=== PATIENT | male | born 2000 | race Caucasian/White ===

== ENCOUNTER 2025-07-01 17:45 | Emergency (ER) | payer OTHER, SELFPAY ==
--- NOTE | ~2025-07-01 | CT_ITS ---
CT facial bones Clinical History: head injury Comparison: None Technique: Unenhanced images through face Coronal, sagittal reformats CT images acquired with automatic exposure control for dose reduction DLP: 375 mGy-cm Findings/impression: 1. Nondisplaced fracture midline mandible propagating back along right side. 2. Additional nondisplaced fracture posterior left mandible along molars. Associated soft tissue emphysema. Reviewed, dictated and finalized at location R.
--- NOTE | ~2025-07-01 | CT_ITS ---
CT HEAD NON-CONTRAST Clinical History: head injury Comparison: None Technique: Unenhanced axial images skull base to vertex Coronal, sagittal reformats CT images acquired with automatic exposure control for dose reduction DLP: 681 mGy-cm Findings: Sulci, ventricles: Unremarkable. No intracerebral hemorrhage. No evidence acute territorial infarct. No mass effect, midline shift. Bony calvarium intact. Visualized paranasal sinuses: Clear. Mastoid air cells: Clear. IMPRESSION: 1. No acute intracranial findings. Reviewed, dictated and finalized at location R.
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
[2025-07-01 18:20] VITALS: BP 132/92; PULSE 96; RESP 14; TEMP 36.8; O2SAT 97
[2025-07-01] MEDS: HYDROcodone/acetaminophen (*CRX) 5-325 MG TABLET 1 TAB PO (18:28)
--- OUTSIDE RECORDS SUMMARY | 2025-07-01 19:10 | XMS_ITS | Clinical Summary ---
Author Organization [facility] [place] Address [address] [place] [address] Care Team Providers Care Network Support Technician Name Role Phone Juan Velazquez MD Primary Care Provider [phone] Allergies No known active allergies Medications No known medications Active Problems Problem Noted Date Diagnosed Date Vertical strabismus of left eye 03/21/2018 Pain of lower extremity 02/21/2012 Social History Tobacco Use Types Packs/Day Years Used Date Smoking Tobacco: Never Assessed Sex and Gender Information Value Date Recorded Sex Assigned at Not on file Legal Sex Male 5:21 AM [employer] Gender Identity Not on file Sexual Orientation Not on file Obstetrics History Last Filed Vital Signs Vital Sign Reading Time Taken Comments Blood Pressure 132/77 09/09/2024 12:11 PM [employer] Pulse 78 09/09/2024 12:11 PM [employer] Temperature 36.9 C (98.5 F) 09/09/2024 12:11 PM [employer] Respiratory Rate 16 09/09/2024 12:11 PM [employer] Oxygen Saturation 99% 09/09/2024 12:11 PM [employer] Inhaled Oxygen Concentration - - Weight 77.1 kg (170 lb) 09/09/2024 12:11 PM [employer] Height 177.8 cm (5' 10) 09/09/2024 12:11 PM [employer] Body Mass Index 24.39 09/09/2024 12:11 PM [employer] Plan of Treatment Health Maintenance Due Date Last Done Comments Depression Screening 2001 Hepatitis C Screening 2001 DTaP/Tdap/Td Vaccine (4 - Tdap) 2012 01/29/2002, 2001, 2001 Varicella Vaccines (1 of 2 - 13+ 2-dose series) 2014 HPV Vaccines (1 - Male 3-dos e series) 2016 Meningococcal B Vaccine (1 o f 2 - Standard) 2017 Regular Well Visit/Exam 18-64 2019 Covid-19 Vaccine (2 - 2024-2 6 season) 2025 09/08/2021 Influenza Vaccine (#1) 2025 Hepatitis B Screening Completed 01/29/2002 , 2001, 2001 Pneumococcal vaccine <65 Aged Out No longer eligible based on patient's age to complete this topic Insurance [facility] [place] [address] [facility] [id number] [facility] Care Teams Network Support Technician Relationship Specialty Start Date End Date Juan Velazquez MD [address] [place] [address] PCP - General Pediatrics 06/21/17
[2025-07-01 20:45] VITALS: BP 145/72; PULSE 75; RESP 16; O2SAT 98
== END 2025-07-01 20:48 | disposition home or self-care (01) ==
PROVIDERS: Emergency Provider Physician Assistant
DX: S02.602A Fracture of unspecified part of body of left mandible, initial encounter for closed fracture (principal); Y04.2XXA Assault by strike against or bumped into by another person, initial encounter
CPT/HCPCS: 70450; 70486; 99284; A9270